=== PATIENT | male | born 1955 | race Caucasian/White ===

== ENCOUNTER 2020-10-27 05:33 | Outpatient (RCR) | payer MEDICARE ==
[~2020-10-27] VITALS: Ht 175.3 cm; Wt 84.0 kg
== END 2020-10-27 14:28 | disposition home or self-care (01) ==
LOC: PREOP 05:33
PROVIDERS: ATTEND Surgery
DX: Z01.812 Encounter for preprocedural laboratory examination (principal); Z20.822 Contact with and (suspected) exposure to COVID-19
CPT/HCPCS: 87635

== ENCOUNTER 2020-10-31 06:21 | Day surgery (SDC) | payer MEDICARE ==
[~2020-10-31] VITALS: Ht 175.3 cm; Wt 84.0 kg
[2020-10-31] MEDS ORDERED: LACTATED RINGERS 1,000 ML IV STA (06:57)
[2020-10-31] MEDS ORDERED: LACTATED RINGERS 1,000 ML IV ONE (07:03)
[2020-10-31] MEDS ORDERED: PROPOFOL INJECTION 50 ML IV ONE (07:07)
[2020-10-31] MEDS ORDERED: MIDAZOLAM 2 MG/2 ML (VERSED) VIAL ONE (07:08)
[2020-10-31 07:27] VITALS: BP 144/93
[2020-10-31 08:40] VITALS: BP 107/71
[2020-10-31 08:44] VITALS: BP 99/65
[2020-10-31 08:45] VITALS: BP 102/73
[2020-10-31] MEDS ORDERED: NS IV 500 ML 500 ML ONE (08:50)
[2020-10-31 09:15] VITALS: BP 124/84
[2020-10-31] MEDS ORDERED: NS IV 500 ML 500 ML IV ONE (09:15)
--- NOTE | 2020-10-31 09:23 | Progress Note-Post Operative ---
Post-Operative Progess Note Surgeon (s)/Shipping Lead Person (s) Surgeon DANIEL KEY DO Shipping Lead Person: Shira Uribe Pre-Operative Diagnosis Screening Colonoscopy Post-Operative Diagnosis polyp diverticulosis int hemorrhoids Procedure & Operative Findings Date of Procedure 10/31/20 Procedure Performed/Findings Colon with snare Anesthesia Type IV sedation by APPLICATIONS CHEMIST Estimated Blood Loss Estimated blood loss (mL): scant Specimens/Packing Specimens Removed transverse colon polyp DANIEL KEY DO Oct 31, 2020 09:23
--- NOTE | 2020-10-31 09:25 | Endoscopy Discharge Instruct ---
Endo Procedure/Findings Findings 1.: Polyp 2.: Diverticulosis 3.: Internal Hemorrhoids Discharge Instructions - Activity: You might feel a little sleepy until tomorrow. This is due to the medicine you received to relax you. Until tomorrow, you should: NOT drive a car, operate machinery or power tools. NOT drink any alcoholic beverages. NOT make any important decisions or sign importortant papers. Do not return to work until tomorrow, unless otherwise instructed. Resume previous activities tomorrow. Diet: Start by taking liquids. If you tolerate liquids, advance to solid food. 1.: Colonscopy in 5 years Notify Physician - If you experience excessive bleeding, unusual abdominal pain, fever, or chest pain, contact your doctor immediately. DANIEL KEY DO Oct 31, 2020 09:25
[2020-10-31 09:40] VITALS: BP 124/84
--- NOTE | 2020-10-31 13:11 | Anesthesia-General Post-Op ---
MAC Patient Condition Mental Status/LOC: Same as Preop Cardiovascular: Satisfactory Nausea/Vomiting: Absent Respiratory: Satisfactory Pain: Controlled Complications: Absent Post Op Complications Complications None Follow Up Care/Instructions Patient Instructions None needed. Anesthesiology Discharge Order Discharge Order Patient is doing well, no complaints, stable vital signs, no apparent adverse anesthesia problems. No complications reported per nursing. LENY MATA CRNA Oct 31, 2020 13:11
--- NOTE | 2020-10-31 23:04 | OPERATIVE REPORT ---
DATE OF SERVICE: PREOPERATIVE DIAGNOSIS: Screening colonoscopy. POSTOPERATIVE DIAGNOSES: Colon polyps, diverticula, internal hemorrhoids. PROCEDURE: Colonoscopy with snare polypectomy. SURGEON: Hansel Lyle DO [employer]OLOGICAL MAN: Shira Uribe MS4. SPECIMEN: Polyp from the transverse colon. BLOOD LOSS: Scant. FLUIDS: Per anesthesia. POSTOPERATIVE CONDITION: Stable. INDICATION FOR PROCEDURE: The patient is a 65-year-old male, who has not had a colonoscopy in over 10 years and needs one for screening. FINDINGS: The patient had a small polyp in the transverse colon. He also had multiple diverticula in the descending and sigmoid colon and he had some small internal hemorrhoids. PROCEDURE NOTE: After informed consent was obtained, the patient was brought to the endoscopy suite, placed in bed in left lateral decubitus position. He was administered IV sedation by the [employer] SERVICES MANAGER who then monitored his vitals the entire time, heart rate, blood pressure and pulse ox and the scope was inserted, pushed all the way to [address] in, noted some diverticula in the descending and sigmoid colon, got up into the transverse colon, saw small polyp, did a snare polypectomy, then able to get all the way to cecum, took a picture of appendiceal orifice, noted the ileocecal valve and then slowly withdrew the scope insufflating to look circumferentially at the rivera looking the cecum, up the ascending colon to the hepatic flexure, then down the transverse colon, splenic flexure, into the descending colon down to the sigmoid and finally into the rectum, retroflexed in the rectal vault, saw some minimal internal hemorrhoids, took a picture of this and then removed the scope. The patient tolerated the procedure, recovered in endoscopy suite. Job ID: [id number] DocumentID: [id number] Dictated Date: 10/31/2020 22:16:19 Shopping Centre Manager Date: 10/31/2020 23:03:45 Dictated By: HANSEL LYLE DO
== END 2020-10-31 09:40 | disposition home or self-care (01) ==
LOC: ENDO 06:21
PROVIDERS: ATTEND Surgery
DX: Z12.11 Encounter for screening for malignant neoplasm of colon (principal); D12.3 Benign neoplasm of transverse colon; K57.30 Diverticulosis of large intestine without perforation or abscess without bleeding; K64.8 Other hemorrhoids; Z80.0 Family history of malignant neoplasm of digestive organs; Z83.3 Family history of diabetes mellitus

== ENCOUNTER 2021-05-23 20:46 | Emergency (ER) | payer MEDICARE ==
[~2021-05-23] VITALS: Ht 175.2 cm; Wt 84.3 kg
[2021-05-23 20:48] VITALS: BP 184/99
--- NOTE | 2021-05-23 21:12 | ED EENT ---
History of Present Illness General Chief Complaint: Eye Problems Stated Complaint: RT EYE PROBLEMS Nursing Triage Note: Patient states that he saw a bright flash of light last night. Patient is also seeing small flashes of light and "floaters". Patient was concerned that he had a detatched retina and wanted to get checked out. Patient denies any change in vision, pain or any injury prior to the light disturbances happening. Source: patient History of Present Illness Date Seen by Provider: May 23, 2021 Time Seen by Provider: 20:48 Initial Comments 65 yo male presents with complaint of having floaters in his right eye and intermittent bright flashes of light. This started for him last night and he felt that it might be a detached retina from looking up his symptoms online so tonight when it had not resolved he wanted to make sure he did not need to do something emergently. Online references told him he needed to take care of it right away and it worried him so he came in to be seen. He has an legger press operator in [place] and was going to call him tomorrow but again was wor ried about it tonight so came here. He has no actual loss of vision. He has no pain with his eye. He had no injury to his head or eye. It is only his right side that is involved. Timing/Duration: yesterday Severity: mild Location: eye (R) Prearrival Treatment: no prearrival treatment Associated Symptoms: No change in hearing, No cough, No drooling, No ear drainage, No facial pain/swelling, No fever, No malaise, No nasal congestion/drainage, No poor fluid intake, No poor solids intake, No sinus infection, No sore throat, No tooth pain, No voice change Allergies and Home Medications Allergies Coded Allergies: No Known Drug Allergies (Unverified , 10/24/20) Patient Home Medication List Home Medication List Reviewed: Yes No Active Prescriptions or Reported Meds Review of Systems Review of Systems Constitutional: see HPI Eyes: See HPI; Denies Blindness, Denies Blurred Vision, Denies Drainage, Denies Decreased Acuity, Denies Foreign Body Sensation, Denies Inflammation, Denies Pain, Denies Photophobia, Denies Vision Changes; Other (intermittent flashes of light in right eye since last night. worse with movement of eye) Ears: No Symptoms Reported Nose: no symptoms reported Mouth: no symptoms reported Throat: no symptoms reported Respiratory: no symptoms reported Cardiovascular: no symptoms reported Gastrointestinal: no symptoms reported Musculoskeletal: no symptoms reported Skin: no symptoms reported Neurological: No Symptoms Reported Past Rnehzep-Uwxmew-Eryakt Hx Patient Social History Tobacco Use?: No Substance use?: No Pt feels they are or have been: No Seasonal Allergies Seasonal Allergies: No Past Medical History Surgeries: Yes Tonsillectomy Respiratory: No Currently Using CPAP: No Currently Using BIPAP: No Cardiac: No Neurological: No 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 oz. kg; 27.00 BMI Method: General Appearance: WD/WN, other (anxious) Eyes: right eye other (pupil constricts with attempting to use direct ophthalmoscope so unable to visualize his retina or vitreous); bilateral eye PERRL, bilateral eye EOMI Neurologic/Psychiatric: alert, oriented x 3 Progress/Results/Core Measures Results/Orders Vital Signs/I&O 05/23/21 20:48 Temp 37.0 Pulse 80 Resp 18 B/P (MAP) 184/99 (127) Pulse Ox 96 O2 Delivery Room Air Blood Pressure Mean: 127 Progress Progress Note : Progress Note Counseled patient that since I was unable to dilate his eye and visualize the retina and vitreous that he would need to have formal eye exam with either metal crafts teacher or legger press operator. At this point with no actual loss of vision he should be fine to wait till morning. If he has sudden loss of vision then come back or call 911 so we can get him to the hospital but has an legger press operator Departure Impression Primary Impression: Flashing lights seen Additional Impression: Floaters in visual field Qualified Codes: H43.391 - Other vitreous opacities, right eye Disposition: 01 HOME, SELF-CARE Condition: Stable Departure-Patient Inst. Decision time for Depature: 21:09 Referrals: CARMEN CANADA MD (PCP/Family) Primary Care Physician Ophthalmmologist Patient Instructions: Floaters in the Eye Add. Discharge Instructions: Follow up with Eye doctor first thing in the morning for a formal Eye exam where they can dilate your eyes and examine your retina in detail. If you develop sudden loss of vision return or call 911 so you could be transported to a Hospital in [place] or [place] that would have Ophthalmology on staff to treat and evaluate your eye. Dr. Rohan Penaloza is an Wire Stretcher here in town that you could call to be seen by in the morning. His address is [address] [place] [address]. Phone number All discharge instructions reviewed with patient and/or family. Voiced understanding. Scripts No Active Prescriptions or Reported Meds ELIS KHALIL MD May 23, 2021 21:12
== END 2021-05-23 21:14 | disposition home or self-care (01) ==
LOC: EDUNIT# 20:46 → ER FS 20:48
DX: H43.391 Other vitreous opacities, right eye (principal)
CPT/HCPCS: 99281